=== PATIENT | female | born 1965 | race Caucasian/White ===

== ENCOUNTER 2017-05-19 21:42 | Emergency (ER) | payer OTHER ==
[~2017-05-19] VITALS: Ht 152.4 cm; Wt 45.4 kg
[2017-05-19] MEDS ORDERED: ONDANSETRON ODT 4 MG TAB.RAPDIS SL ONE (22:45)
[2017-05-19] MEDS ORDERED: IBUPROFEN 400 MG TABLET PO ONE (22:45)
--- NOTE | 2017-05-19 23:04 | NUR ---
Gave pt RX and d/c instructions, verbalized understanding. Family translated.
[2017-05-19] MEDS ORDERED: ONDANSETRON ODT 4 MG TAB.RAPDIS ONE (23:08)
[2017-05-19] MEDS ORDERED: IBUPROFEN 400 MG TABLET ONE (23:08)
== END 2017-05-19 23:08 | disposition home or self-care (01) ==
LOC: ER 21:45
DX: R51 Headache (principal); F43.9 Reaction to severe stress, unspecified; R11.0 Nausea; M54.9 Dorsalgia, unspecified; G47.00 Insomnia, unspecified; Z87.442 Personal history of urinary calculi
CPT/HCPCS: A4663; Q0162

== ENCOUNTER 2018-09-17 09:26 | Emergency (ER) | payer OTHER ==
[~2018-09-17] VITALS: Ht 152.4 cm; Wt 49.9 kg
--- NOTE | 2018-09-17 09:43 | NUR ---
Dr. Kirkpatrick at the bedside for MSE.
--- NOTE | 2018-09-17 10:05 | NUR ---
Patient discharged to home in stable conditon. Written and verbal after care instructions given. Patient verbalizes understanding of instructions.
== END 2018-09-17 10:05 | disposition home or self-care (01) ==
LOC: ER 09:26
DX: J32.9 Chronic sinusitis, unspecified (principal); J20.9 Acute bronchitis, unspecified
CPT/HCPCS: A4663

== ENCOUNTER 2018-12-26 17:24 | Emergency (ER) | payer OTHER ==
[~2018-12-26] VITALS: Ht 152.4 cm; Wt 49.9 kg
[2018-12-26] MEDS ORDERED: KETOROLAC TROMETHAMINE 60 MG INJ IM ONE ×2 (18:00→18:03)
--- NOTE | 2018-12-26 18:04 | NUR ---
Patient was seen by MD for c/o pain
--- NOTE | 2018-12-26 18:19 | NUR ---
DC, RX AND FOLLOW UP INSTRUCTIONS GIVEN AND EXPLAINED TO PATIENT AND FAMILY WHO STATE THEY UNDERSTAND ALL INSTRUCTIONS.
== END 2018-12-26 18:26 | disposition home or self-care (01) ==
LOC: ER 17:24
DX: M54.12 Radiculopathy, cervical region (principal); M79.621 Pain in right upper arm
CPT/HCPCS: 96372; 99283; J1885; A4663

== ENCOUNTER 2020-12-25 22:05 | Emergency (ER) | payer OTHER ==
--- NOTE | 2020-12-25 23:02 | NUR ---
Patient not in waiting room lobby, or outside ED.
--- NOTE | 2020-12-25 23:13 | NUR ---
Patient not in waiting room lobby, or outside ED.
--- NOTE | 2020-12-25 23:25 | NUR ---
Patient left without being seen by ER physician.
== END 2020-12-25 23:25 | disposition left against medical advice (07) ==
LOC: ER 22:07
DX: Z53.21 Procedure and treatment not carried out due to patient leaving prior to being seen by health care provider (principal)